=== PATIENT | male | born 1955 | race Caucasian/White ===

== ENCOUNTER 2017-05-27 11:11 | Inpatient (IN) | payer OTHER ==
[~2017-05-27] VITALS: Ht 182.9 cm; Wt 85.6 kg
--- NOTE | 2017-05-27 11:33 | EMERGENCY ROOM VISIT NOTE ---
History Report prepared by Felicia: Brandi Mclaughlin Under the Supervision of: Huma VegaO. First contact with patient: 11:23 Chief Complaint: TACHYCARDIA Stated Complaint: RACING HEARTBEAT History of Present Illness The patient is a 61 year old male who presents to the Emergency Room with complaints of tachycardia beginning this morning. The patient states that he had this episode once before about two months ago, but that he has had no issues since. He states that he was placed on a beta jon, but that he is no longer taking it. He states that he was diagnosed with atrial fibrillation. The patient states that he felt normal yesterday, but ate a lot and had alcohol. He reports being short of breath going up stairs today, but that he felt normal afterwards. He also reports feeling light-headed, but denies being nauseous and denies urinary/GI symptoms otherwise. The patient reports that his father had angina and his mother has a leaky valve. He also reports that his sister has thyroid issues. The patient denies a history of a stroke, hyperlipidemia, hypertension, and diabetes. Source of History: patient Onset: this morning Position: other (global) Quality: other Associated Symptoms: + SOB, + weakness (light-headedness), No nausea, No urinary symptoms Review of Systems See HPI for pertinent positives & negatives. A total of 10 systems reviewed and were otherwise negative. Past Medical & Surgical Medical Problems: (1) Atrial fibrillation Family History Angina Social History Smoking Status: Never Smoker Alcohol Use: occasionally Current/Historical Medications No Active Prescriptions or Reported Meds Allergies Coded Allergies: No Known Allergies (Unverified , 05/27/17) Physical Exam Vital Signs Date Time Temp Pulse Resp B/P (MAP) Pulse Ox O2 Delivery O2 Flow Rate FiO2 05/27/17 15:41 105 17 95 05/27/17 15:31 133/80 05/27/17 15:20 96 Room Air 05/27/17 15:16 125/89 05/27/17 15:11 112 31 97 05/27/17 15:10 103 18 114/79 96 Room Air 05/27/17 15:01 114/79 05/27/17 14:46 110/77 05/27/17 14:41 101 21 98 05/27/17 14:34 115 18 129/74 98 Room Air 05/27/17 14:32 129/74 05/27/17 14:16 133/81 05/27/17 14:11 159 21 97 05/27/17 14:04 125 18 113/90 97 Room Air 05/27/17 14:01 113/90 05/27/17 14:00 118/75 05/27/17 13:41 99/77 05/27/17 13:36 111 18 96/77 94 Room Air 05/27/17 13:31 99/77 05/27/17 13:17 119/59 05/27/17 13:11 96 17 95 05/27/17 13:01 115/81 05/27/17 12:46 114/99 05/27/17 12:41 119 15 95 05/27/17 12:34 123 18 124/76 95 Room Air 05/27/17 12:31 124/76 05/27/17 12:16 102/83 05/27/17 12:11 113 27 97 05/27/17 12:10 126/77 05/27/17 12:09 118 18 102/83 97 Room Air 05/27/17 11:56 125/61 05/27/17 11:55 156 18 125/61 96 Room Air 05/27/17 11:48 155 18 119/87 97 Room Air 05/27/17 11:46 119/87 05/27/17 11:41 134 32 97 05/27/17 11:34 160 18 95/88 97 Room Air 05/27/17 11:32 95/88 05/27/17 11:22 144/118 05/27/17 11:22 157 05/27/17 11:20 124/100 05/27/17 11:19 36.5 158 20 124/100 98 Room Air Physical Exam GENERAL: alert, well appearing, well nourished, no distress, non-toxic EYE EXAM: normal conjunctiva, PERRL and EOM's grossly intact OROPHARYNX: no exudate, no erythema, lips, buccal mucosa, and tongue normal and mucous membranes are dry NECK: supple, no nuchal rigidity, no adenopathy, non-tender LUNGS: Clear to auscultation. Normal chest wall mechanics, no w/r/r HEART: Tachycardic, irregular rhythm. no murmurs, S1 normal and S2 normal ABDOMEN: abdomen soft, non-tender, normo-active bowel sounds, no masses, no rebound or guarding. BACK: Back is symmetrical on inspection and there is no deformity, no midline tenderness, no CVA tenderness. SKIN: no rashes and no bruising UPPER EXTREMITIES: upper extremities are grossly normal. LOWER EXTREMITIES: No pitting edema. NEURO EXAM: Normal sensorium, cranial nerves II-XII [grossly] intact, normal speech, no [gross] weakness of arms, no [gross] weakness of legs. Medical Decision & Procedures ER Provider Diagnostic Interpretation: Radiology results have been interpreted by the radiologist and reviewed by me. CHEST ONE VIEW PORTABLE HISTORY: 61 years-old Male palpitations acute cardiac palpitations COMPARISON: None available TECHNIQUE: Portable upright AP view of the chest FINDINGS: Cardiomediastinal and hilar silhouettes are within normal limits. No pneumothorax, pleural effusion, focal airspace consolidation or overt pulmonary edema. Bones of the chest are grossly intact. IMPRESSION: No acute cardiopulmonary process. The above report was generated using voice recognition software. It may contain grammatical, syntax or spelling errors. Electronically signed by: Madhav Gee M.D. 05/27/2017 12:03 PM Dictated Date/Time: 05/27/2017 12:02 PM (CHEST FOR PE) ANGIO WITH CT DOSE: 462.63 mGy.cm HISTORY: 61 years-old Male tachycardia with shortness of breath on exertion. Recent travel history. TECHNIQUE: Multiple CTA images of the chest were obtained after the intravenous administration of 93 mL Optiray 320. Coronal and sagittal MIPS were obtained from the axial data set and were submitted for review. A dose lowering technique was utilized adhering to the principles of ALARA. COMPARISON: Chest radiograph of same day. FINDINGS: CTA: Heart is upper limits of normal in size. The thoracic aorta is not well opacified secondary to a large portion of the contrast bolus still within the SVC. No aortic aneurysm or dissection is identified. Imaged proximal great vessels appear patent. There is satisfactory opacification of the pulmonary arterial tree to the level of the subsegmental branches and demonstrates no focal filling defect to suggest pulmonary thromboembolic disease. CT CHEST: No dominant thyroid nodule identified. No pathologic adenopathy of the chest is seen. No pneumothorax or pleural effusion. There is no focal airspace consolidation or overt pulmonary edema. Minimal groundglass opacities of the lung bases suggest atelectasis. Central airways are patent. There is mild bronchial wall thickening of the lung bases suggesting bronchitis. No significant air trapping identified. There are ill-defined scattered areas of low attenuation involving the right and left hepatic lobes measuring up to approximately 1.5 cm. The remaining imaged upper abdominal structures are within normal limits. Soft tissues are unremarkable. The bones appear intact. No suspicious lytic or blastic bony lesions IMPRESSION: 1. No acute aortic pathology or evidence of pulmonary thromboembolic disease. 2. Bronchial wall thickening of the bilateral lungs suggests bronchitis. 3. Scattered areas of ill-defined low-attenuation throughout the right and left hepatic lobes are suspicious for nonspecific lesions. This finding could be further correlated with contrast-enhanced CT or MRI. No comparison study is available. The above report was generated using voice recognition software. It may contain grammatical, syntax or spelling errors. Electronically signed by: Madhav Gee M.D. 05/27/2017 2:18 PM Dictated Date/Time: 05/27/2017 2:04 PM Laboratory Results 05/27/17 11:24 Red Blood Count 5.42, Mean Corpuscular Volume 93.0, Mean Corpuscular Hemoglobin 32.1, Mean Corpuscular Hemoglobin Concent 34.5, Mean Platelet Volume 11.1, Neutrophils (%) (Auto) 72.5, Lymphocytes (%) (Auto) 18.0, Monocytes (%) (Auto) 7.6, Eosinophils (%) (Auto) 1.3, Basophils (%) (Auto) 0.2, Neutrophils # (Auto) 6.85, Lymphocytes # (Auto) 1.70, Monocytes # (Auto) 0.72, Eosinophils # (Auto) 0.12, Basophils # (Auto) 0.02 05/27/17 11:24 Test 05/27/17 11:24 White Blood Count 9.45 K/uL (4.8-10.8) Red Blood Count 5.42 M/uL (4.7-6.1) Hemoglobin 17.4 g/dL (14.0-18.0) Hematocrit 50.4 % (42-52) Mean Corpuscular Volume 93.0 fL (80-100) Mean Corpuscular Hemoglobin 32.1 pg (25-34) Mean Corpuscular Hemoglobin Concent 34.5 g/dl (32-36) Platelet Count 233 K/uL (130-400) Mean Platelet Volume 11.1 fL (7.4-10.4) Neutrophils (%) (Auto) 72.5 % Lymphocytes (%) (Auto) 18.0 % Monocytes (%) (Auto) 7.6 % Eosinophils (%) (Auto) 1.3 % Basophils (%) (Auto) 0.2 % Neutrophils # (Auto) 6.85 K/uL (1.4-6.5) Lymphocytes # (Auto) 1.70 K/uL (1.2-3.4) Monocytes # (Auto) 0.72 K/uL (0.11-0.59) Eosinophils # (Auto) 0.12 K/uL (0-0.5) Basophils # (Auto) 0.02 K/uL (0-0.2) RDW Standard Deviation 44.7 fL (36.4-46.3) RDW Coefficient of Variation 13.1 % (11.5-14.5) Immature Granulocyte % (Auto) 0.4 % Immature Granulocyte # (Auto) 0.04 K/uL (0.00-0.02) D-Dimer 590 ug/L FEU (0-500) Anion Gap 7.0 mmol/L (3-11) Est Creatinine Clear Calc Drug Dose 85.2 ml/min Estimated GFR () 93.7 Estimated GFR (Non- 80.9 BUN/Creatinine Ratio 17.8 (10-20) Calcium Level 9.0 mg/dl (8.5-10.1) Phosphorus Level 1.8 mg/dl (2.5-4.9) Magnesium Level 2.2 mg/dl (1.8-2.4) Total Bilirubin 0.7 mg/dl (0.2-1) Aspartate Amino Transf (AST/SGOT) 25 U/L (15-37) Alanine Aminotransferase (ALT/SGPT) 37 U/L (12-78) Alkaline Phosphatase 61 U/L (45-117) Troponin I < 0.015 ng/ml (0-0.045) Pro-B-Type Natriuretic Peptide 228 pg/ml (0-900) Total Protein 7.5 gm/dl (6.4-8.2) Albumin 4.0 gm/dl (3.4-5.0) Globulin 3.5 gm/dl (2.5-4.0) Albumin/Globulin Ratio 1.1 (0.9-2) Thyroid Stimulating Hormone (TSH) 1.590 uIu/ml (0.300-4.500) Laboratory results per my review. Medications Administered Medications (Trade) Dose Ordered Sig/Alia Route Start Time Stop Time Status Last Admin Dose Admin Sodium Chloride 1,000 ml @ 999 mls/hr Q1H1M STAT IV 05/27/17 11:39 05/27/17 12:39 DC 05/27/17 11:57 999 MLS/HR Sodium Chloride 1,000 ml @ 250 mls/hr Q4H STAT IV 05/27/17 11:41 05/27/17 15:40 DC 05/27/17 12:24 250 MLS/HR Diltiazem HCl (Cardizem Inj) 15 mg TODAY@1200 IV 05/27/17 12:00 05/27/17 12:02 DC 05/27/17 11:59 15 MG Diltiazem HCl 125 mg/Dextrose 125 ml @ 0 mls/hr Q0M PRN IV 05/27/17 12:00 06/26/17 11:59 05/27/17 12:24 5 MLS/HR Enoxaparin Sodium (Lovenox Inj) 90 mg NOW ONCE SQ 05/27/17 14:30 05/27/17 14:31 DC 05/27/17 15:40 90 MG Sodium Chloride 1,000 ml @ 80 mls/hr [id number] IV 05/27/17 15:16 06/26/17 15:15 05/27/17 18:10 80 MLS/HR ECG Indication: tachycardia Rate (beats per minute): 150 Rhythm: atrial fibrillation (rapid) Findings: no acute ischemic change, other (normal axis, normal QRS and QTC) ED Course 1125: The patient was evaluated in room B11B. A complete history and physical exam was performed. 1139: Ordered Sodium Chloride 1,000 ml @ 999 mls/hr IV. 1141: Ordered Sodium Chloride 1,000 ml @ 250 mls/hr IV. 1142: Ordered Diltiazem HCl 1 ea IV. 1200: Ordered Diltiazem HCl 125 mg/Dextrose 125 ml @ 0 mls/hr Protocol IV, Diltiazem HCl 15 mg IV. 1215: The patient reports feeling better. He received a bolus, and his heart rate is down to 100. 1410: Ordered Lovenox 1 Mg/Kg 1 ea. 1430: Ordered Lovenox Inj 90 mg SQ. 1509: Upon reevaluation, the patient is resting. I discussed the findings and the treatment plan with the patient. He expresses agreement and understanding. I spoke with Dr. Cantrell of the [facility] Hospitalist Service. He will be evaluated for further management. Medical Decision Differential diagnosis: Etiologies such as premature contractions, electrolyte abnormality, cardiac dysrhythmia, thyroid dysfunction, pulmonary embolism, infection, gastrointestinal, as well as others were entertained. Pt with a.fib with RVR, clinically dehydrated but responded to IVF. Questionable prior episode of a.fib. Possibly related to use of etoh, no apparent thyroid dysfunction or occult infectious etiology. Pt needs echo as he never had one from the first episode yet 2 months ago. Pt with low CHADS- VASC2 score. Given one dose of lovenox in the ER. Additional anticoagulation deferred to medicine team and cardiology. Pt improved here with rate control on cardizem drip. [place] improved in symptoms. Doubt vascular abnormality. Medication Reconcilliation Current Medication List: was personally reviewed by me Blood Pressure Screening Patient's blood pressure: Normal blood pressure Consults Time Called: [phone] Consulting Physician: Dr. Cantrell- [facility] Returned Call: [phone] I reviewed the patient's case with Dr. Catnrell. He will evaluate the patient for further management. Impression Primary Impression: Atrial fibrillation with rapid ventricular response Additional Impression: Palpitations Critical Care I have personally spent 45 minutes of critical care time in the direct management of this patient. This includes bedside care, interpretation of diagnostic studies, and testing, discussion with consultants, patient, and family members, and other required patient management activities. This 45 minutes is in excess of all separately billable procedures. Scribe Attestation The scribe's documentation has been prepared under my direction and personally reviewed by me in its entirety. I confirm that the note above accurately reflects all work, treatment, procedures, and medical decision making performed by me. Departure Information Dispostion Being Evaluated By Hospitalist Prescriptions No Active Prescriptions or Reported Meds Referrals No Doctor, Assigned (PCP) Patient Instructions [facility] Health Problem Qualifiers
[2017-05-27] MEDS ORDERED: SODIUM CHLORIDE 0.9% 1000ML 1,000 ML IV STA ×2 (11:39→11:41)
[2017-05-27] MEDS ORDERED: DILTIAZEM BOLUS / DRIP IV STA (11:42)
[2017-05-27] MEDS ORDERED: DILTIAZEM HCL 5 MG/ML 5 ML VIAL ONE (11:50)
[2017-05-27] MEDS ORDERED: DILTIAZEM HCL 5 MG/ML 5 ML VIAL IV SCH (12:00)
--- NOTE | 2017-05-27 12:04 | DIAGNOSTIC IMAGING REPORT ---
CHEST ONE VIEW PORTABLE HISTORY: 61 years-old Male palpitations acute cardiac palpitations COMPARISON: None available TECHNIQUE: Portable upright AP view of the chest FINDINGS: Cardiomediastinal and hilar silhouettes are within normal limits. No pneumothorax, pleural effusion, focal airspace consolidation or overt pulmonary edema. Bones of the chest are grossly intact. IMPRESSION: No acute cardiopulmonary process. The above report was generated using voice recognition software. It may contain grammatical, syntax or spelling errors. Electronically signed by: Madhav Gee M.D. 05/27/2017 12:03 PM Dictated Date/Time: 05/27/2017 12:02 PM
[2017-05-27] MEDS: DILTIAZEM HCL INJ 125 MG in DEXTROSE 5% 100ML IV PRN (12:24)
[2017-05-27 12:25] LABS: BASO % 0.2 %; BASO ABS # 0.02 K/uL (0-0.2); COMPLETE YES; EOS % 1.3 %; HEMATOCRIT 50.4 % (42-52); IG% 0.4 %; MEAN CORPUSCULAR HEMOGLOBIN 32.1 pg (25-34); MEAN CORPUSCULAR HGB CONC 34.5 g/dl (32-36); MEAN PLATELET VOLUME 11.1 fL (7.4-10.4); MONO % 7.6 %; NEUT % 72.5 %; PLATELET COUNT 233 K/uL (130-400); RED BLOOD COUNT 5.42 M/uL (4.7-6.1); WHITE BLOOD COUNT 9.45 K/uL (4.8-10.8)
[2017-05-27 12:34] LABS: ALT/SGPT 37 U/L (12-78); AST/SGOT 25 U/L (15-37); BLOOD UREA NITROGEN 18 mg/dl (7-18); BUN/CREATININE RATIO 17.8 (10-20); CARBON DIOXIDE 29 mmol/L (21-32); CHLORIDE 104 mmol/L (98-107); GLUCOSE 141 mg/dl (70-99); MAGNESIUM 2.2 mg/dl (1.8-2.4); POTASSIUM 3.9 mmol/L (3.5-5.1); SODIUM 140 mmol/L (136-145)
[2017-05-27 12:44] LABS: ALB/GLOB RATIO 1.1 (0.9-2); ALKALINE PHOSPHATASE 61 U/L (45-117)
[2017-05-27] MEDS ORDERED: ENOXAPARIN 1 MG/KG SQ STA (14:10)
[2017-05-27] MEDS ORDERED: OPTIRAY 320 IV PRN (14:15)
--- NOTE | 2017-05-27 14:19 | DIAGNOSTIC IMAGING REPORT ---
(CHEST FOR PE) ANGIO WITH CT DOSE: 462.63 mGy.cm HISTORY: 61 years-old Male tachycardia with shortness of breath on exertion. Recent travel history. TECHNIQUE: Multiple CTA images of the chest were obtained after the intravenous administration of 93 mL Optiray 320. Coronal and sagittal MIPS were obtained from the axial data set and were submitted for review. A dose lowering technique was utilized adhering to the principles of ALARA. COMPARISON: Chest radiograph of same day. FINDINGS: CTA: Heart is upper limits of normal in size. The thoracic aorta is not well opacified secondary to a large portion of the contrast bolus still within the SVC. No aortic aneurysm or dissection is identified. Imaged proximal great vessels appear patent. There is satisfactory opacification of the pulmonary arterial tree to the level of the subsegmental branches and demonstrates no focal filling defect to suggest pulmonary thromboembolic disease. CT CHEST: No dominant thyroid nodule identified. No pathologic adenopathy of the chest is seen. No pneumothorax or pleural effusion. There is no focal airspace consolidation or overt pulmonary edema. Minimal groundglass opacities of the lung bases suggest atelectasis. Central airways are patent. There is mild bronchial wall thickening of the lung bases suggesting bronchitis. No significant air trapping identified. There are ill-defined scattered areas of low attenuation involving the right and left hepatic lobes measuring up to approximately 1.5 cm. The remaining imaged upper abdominal structures are within normal limits. Soft tissues are unremarkable. The bones appear intact. No suspicious lytic or blastic bony lesions IMPRESSION: 1. No acute aortic pathology or evidence of pulmonary thromboembolic disease. 2. Bronchial wall thickening of the bilateral lungs suggests bronchitis. 3. Scattered areas of ill-defined low-attenuation throughout the right and left hepatic lobes are suspicious for nonspecific lesions. This finding could be further correlated with contrast-enhanced CT or MRI. No comparison study is available. The above report was generated using voice recognition software. It may contain grammatical, syntax or spelling errors. Electronically signed by: Madhav Gee M.D. 05/27/2017 2:18 PM Dictated Date/Time: 05/27/2017 2:04 PM
[2017-05-27] MEDS ORDERED: ENOXAPARIN 100 MG/1ML SYR SQ ONE (14:30)
[2017-05-27 15:20] VITALS: O2SAT 96; Ht 182.9 cm; Wt 85.6 kg
[2017-05-27] MEDS ORDERED: ACETAMINOPHEN 325 MG TAB PO PRN (15:30)
--- NOTE | 2017-05-27 15:53 | History and Physical ---
History & Physical Date & Time of Service: May 27, 2017 at 15:45 Chief Complaint: Racing Heartbeat Primary Care Physician: No Doctor, Assigned History of Present Illness Source: patient This is a 61 year old male with a past medical history of atrial fibrillation presents with palpitations - he states that two months ago in the [place], he was diagnosed with [facility] Fibrillation. At that time, they did some tests and put in on a b-jon. His heart rhythm converted to sinus rhythm and he was told to use the b-jon for two more weeks and then stop, which he did. Since then he had been on no medications. Earlier this morning, he developed palpitations - similar to this previous episode of A. Fib. Presented here and found to have A. Fib with RVR again. Started on Cardizem drip and HRs started improving. States he had dyspnea with exertion and palpitations, but no other symptoms at this time. Past Medical/Surgical History Medical Problems: (1) Atrial fibrillation Status: Chronic Family History Angina Social History Smoking Status: Never Smoker Allergies Coded Allergies: No Known Allergies (Unverified , 05/27/17) Home Medications No Active Prescriptions or Reported Meds Review of Systems Constitutional: No fever, No chills, No weakness Respiratory: + dyspnea on exertion, No cough, No sputum, No wheezing, No shortness of breath, No dyspnea at rest, No hemoptysis Cardiovascular: + palpitations, No chest pain, No orthopnea, No edema Abdomen: No pain, No nausea, No vomiting, No diarrhea Musculoskeletal: No joint pain Genitourinary - Male: No hematuria, No dysuria, No urinary frequency, No urinary urgency Neurologic: No weakness, No numbness/tingling, No vertigo, No balance problems Psychiatric: No depression symptoms, No anxiety Endocrine: No fatigue, No excessive thirst, No excessive urination Hematologic / Lymphatic: No abnormal bleeding/bruising, No swollen lymph nodes Integumentary: No rash, No itch Allergic / Immunologic: No environmental allergies, No seasonal allergies Physical Exam Vital Signs Date Time Temp Pulse Resp B/P (MAP) Pulse Ox O2 Delivery O2 Flow Rate FiO2 05/27/17 15:10 103 18 114/79 96 Room Air 05/27/17 14:34 115 18 129/74 98 Room Air 05/27/17 14:04 125 18 113/90 97 Room Air 05/27/17 13:36 111 18 96/77 94 Room Air 05/27/17 12:34 123 18 124/76 95 Room Air 05/27/17 12:09 118 18 102/83 97 Room Air 05/27/17 11:55 156 18 125/61 96 Room Air 05/27/17 11:48 155 18 119/87 97 Room Air 05/27/17 11:34 160 18 95/88 97 Room Air 05/27/17 11:22 157 05/27/17 11:19 36.5 158 20 124/100 98 Room Air General Appearance: no apparent distress Head: normocephalic, atraumatic Eyes: normal inspection ENT: hearing grossly normal Neck: supple Respiratory/Chest: chest non-tender, lungs clear, normal breath sounds, no respiratory distress, no accessory muscle use Cardiovascular: no edema, no JVD, no murmur, normal peripheral pulses, + tachycardia, + irregularly irregular Abdomen/GI: normal bowel sounds, non tender, soft Back: normal inspection Extremities/Musculoskelatal: normal inspection, no calf tenderness, normal capillary refill, no pedal edema, normal range of motion Neurologic/Psych: department specialist II-XII nml as tested, no motor/sensory deficits, alert, normal mood/affect, oriented x 3 Skin: normal color Lymphatic: no adenopathy Diagnostics Laboratory Results Results Past 24 Hours Test 05/27/17 11:24 05/27/17 15:16 Range/Units White Blood Count 9.45 4.8-10.8 K/uL Red Blood Count 5.42 4.7-6.1 M/uL Hemoglobin 17.4 14.0-18.0 g/dL Hematocrit 50.4 42-52 % Mean Corpuscular Volume 93.0 80-100 fL Mean Corpuscular Hemoglobin 32.1 25-34 pg Mean Corpuscular Hemoglobin Concent 34.5 32-36 g/dl Platelet Count 233 130-400 K/uL Mean Platelet Volume 11.1 7.4-10.4 fL Neutrophils (%) (Auto) 72.5 % Lymphocytes (%) (Auto) 18.0 % Monocytes (%) (Auto) 7.6 % Eosinophils (%) (Auto) 1.3 % Basophils (%) (Auto) 0.2 % Neutrophils # (Auto) 6.85 1.4-6.5 K/uL Lymphocytes # (Auto) 1.70 1.2-3.4 K/uL Monocytes # (Auto) 0.72 0.11-0.59 K/uL Eosinophils # (Auto) 0.12 0-0.5 K/uL Basophils # (Auto) 0.02 0-0.2 K/uL RDW Standard Deviation 44.7 36.4-46.3 fL RDW Coefficient of Variation 13.1 11.5-14.5 % Immature Granulocyte % (Auto) 0.4 % Immature Granulocyte # (Auto) 0.04 0.00-0.02 K/uL D-Dimer 590 0-500 ug/L FEU Sodium Level 140 136-145 mmol/L Potassium Level 3.9 3.5-5.1 mmol/L Chloride Level 104 98-107 mmol/L Carbon Dioxide Level 29 21-32 mmol/L Anion Gap 7.0 3-11 mmol/L Blood Urea Nitrogen 18 7-18 mg/dl Creatinine 1.00 0.60-1.40 mg/dl Est Creatinine Clear Calc Drug Dose 85.2 ml/min Estimated GFR () 93.7 Estimated GFR (Non- 80.9 BUN/Creatinine Ratio 17.8 10-20 Random Glucose 141 70-99 mg/dl Calcium Level 9.0 8.5-10.1 mg/dl Magnesium Level 2.2 1.8-2.4 mg/dl Total Bilirubin 0.7 0.2-1 mg/dl Aspartate Amino Transf (AST/SGOT) 25 15-37 U/L Alanine Aminotransferase (ALT/SGPT) 37 12-78 U/L Alkaline Phosphatase 61 45-117 U/L Troponin I < 0.015 0-0.045 ng/ml Pro-B-Type Natriuretic Peptide 228 0-900 pg/ml Total Protein 7.5 6.4-8.2 gm/dl Albumin 4.0 3.4-5.0 gm/dl Globulin 3.5 2.5-4.0 gm/dl Albumin/Globulin Ratio 1.1 0.9-2 Thyroid Stimulating Hormone (TSH) 1.590 0.300-4.500 uIu/ml Diagnostic Radiology (CHEST FOR PE) ANGIO WITH CT DOSE: 462.63 mGy.cm HISTORY: 61 years-old Male tachycardia with shortness of breath on exertion. Recent travel history. TECHNIQUE: Multiple CTA images of the chest were obtained after the intravenous administration of 93 mL Optiray 320. Coronal and sagittal MIPS were obtained from the axial data set and were submitted for review. A dose lowering technique was utilized adhering to the principles of ALARA. COMPARISON: Chest radiograph of same day. FINDINGS: CTA: Heart is upper limits of normal in size. The thoracic aorta is not well opacified secondary to a large portion of the contrast bolus still within the SVC. No aortic aneurysm or dissection is identified. Imaged proximal great vessels appear patent. There is satisfactory opacification of the pulmonary arterial tree to the level of the subsegmental branches and demonstrates no focal filling defect to suggest pulmonary thromboembolic disease. CT CHEST: No dominant thyroid nodule identified. No pathologic adenopathy of the chest is seen. No pneumothorax or pleural effusion. There is no focal airspace consolidation or overt pulmonary edema. Minimal groundglass opacities of the lung bases suggest atelectasis. Central airways are patent. There is mild bronchial wall thickening of the lung bases suggesting bronchitis. No significant air trapping identified. There are ill-defined scattered areas of low attenuation involving the right and left hepatic lobes measuring up to approximately 1.5 cm. The remaining imaged upper abdominal structures are within normal limits. Soft tissues are unremarkable. The bones appear intact. No suspicious lytic or blastic bony lesions IMPRESSION: 1. No acute aortic pathology or evidence of pulmonary thromboembolic disease. 2. Bronchial wall thickening of the bilateral lungs suggests bronchitis. 3. Scattered areas of ill-defined low-attenuation throughout the right and left hepatic lobes are suspicious for nonspecific lesions. This finding could be further correlated with contrast-enhanced CT or MRI. No comparison study is available. CHEST ONE VIEW PORTABLE HISTORY: 61 years-old Male palpitations acute cardiac palpitations COMPARISON: None available TECHNIQUE: Portable upright AP view of the chest FINDINGS: Cardiomediastinal and hilar silhouettes are within normal limits. No pneumothorax, pleural effusion, focal airspace consolidation or overt pulmonary edema. Bones of the chest are grossly intact. IMPRESSION: No acute cardiopulmonary process. EKG Atrial fibrillation with rapid ventricular response Impression Assessment and Plan This is a 61 year old male with a past medical history of atrial fibrillation presents with palpitations found to have A. Fib with RVR A. Fib with RVR second episode, as he had this two months prior started on Cardizem drip will start Lopressor 25mg BID and try to taper down the Cardizem was given Lovenox in the ED; which we can continue while he is in A. Fib with RVR check an echo monitor in tele cardiology consult for further input CHADS2 = 0 (pending echo) DVT ppx Lovenox 1mg/kg q12 FULL CODE VTE Prophylaxis VTE Risk Assessment Done? Y/N: Yes Risk Level: Moderate Given or contraindicated: Other Anticoagulation
[2017-05-27] MEDS ORDERED: DILTIAZEM BOLUS / DRIP IV SCH (16:39)
[2017-05-27 17:05] VITALS: BP 101/79; PULSE 100; TEMP 36.7; O2SAT 100
[2017-05-27] MEDS: SODIUM CHLORIDE 0.9% 1000ML 1,000 ML IV SCH ×2 (18:10→20:54)
[2017-05-27 19:31] VITALS: BP 109/85; PULSE 89; TEMP 36.4; O2SAT 99
[2017-05-27] MEDS: METOPROLOL TARTRATE 25 MG TAB PO SCH (20:56)
[2017-05-27] MEDS ORDERED: ENOXAPARIN 1 MG/KG SQ SCH (21:00)
[2017-05-27] MEDS: ENOXAPARIN 100 MG/1ML SYR SQ SCH (23:13)
[2017-05-28] VITALS (8 sets, daily range): BP systolic 92–121; BP diastolic 61–91; PULSE 71–97; TEMP 36.6–37; O2SAT 94–97
[2017-05-28] MEDS: DILTIAZEM HCL INJ 125 MG in DEXTROSE 5% 100ML IV PRN (01:02)
[2017-05-28 05:59] LABS: HEMATOCRIT 46.2 % (42-52); MEAN CELL VOLUME 94.5 fL (80-100); MEAN CORPUSCULAR HEMOGLOBIN 30.3 pg (25-34); MEAN PLATELET VOLUME 10.4 fL (7.4-10.4); PLATELET COUNT 199 K/uL (130-400); RED BLOOD COUNT 4.89 M/uL (4.7-6.1)
[2017-05-28 06:11] LABS: PARTIAL THROMBOPLASTIN RATIO 1.4; PROTHROMBIN TIME (PATIENT) 10.7 SECONDS (9.0-12.0)
[2017-05-28 06:35] LABS: BUN/CREATININE RATIO 14.6 (10-20); CALCIUM 8.3 mg/dl (8.5-10.1); CREATININE 0.85 mg/dl (0.60-1.40); POTASSIUM 3.9 mmol/L (3.5-5.1)
[2017-05-28] MEDS: METOPROLOL TARTRATE 25 MG TAB PO SCH (08:47)
[2017-05-28] MEDS: ENOXAPARIN 100 MG/1ML SYR SQ SCH (08:47)
--- NOTE | 2017-05-28 10:26 | ECHOCARDIOGRAM REPORT ---
*NOTICE TO RECEIVING REPUBLICAN AGENCY This information is strictly Confidential and protected under [place] law. [place] law prohibits you from making any further disclosure of this information unless further disclosure is expressly permitted by the written consent of the person to whom it pertains or is authorized by law. A general authorization for the release of medical or other information is not sufficient for this purpose. Hospital accepts no responsibility if the information is made available to any other person, INCLUDING THE PATIENT. Interpretation Summary * Name: JOEL LINDSAY Study Date: 05/28/2017 08:05 AM BP: 98/65 mmHg * Patient Location: [id number].2E\S\E206\S\1 HR: 80 * : 1955 (M/d/yyyy) Gender: Male Height: 72 in * Age: 61 yrs Ethnicity: CA Weight: 188 lb * Ordering Physician: Rich Elizondo * Referring Physician: Self, Referred * Performed By: Michael Quinonez RCS * * Reason For Study: A-FIB * BSA: 2.1 m2 * -- Conclusions -- * Normal LV chamber size and wall thickness. * Normal LV systolic function, EF 60-65%. * No segmental left ventricular wall motion abnormalities are noted. * Aortic valve sclerosis mild, without significant aortic valvular stenosis. Trace regurgitation. * Mild left atrial enlargement. Procedure Details * A complete two-dimensional transthoracic echocardiogram was performed (2D, M-mode, Doppler and color flow Doppler). Left Ventricle * The left ventricle is normal in size. * There is normal left ventricular wall thickness. * Left ventricular systolic function is normal. * No segmental left ventricular wall motion abnormalities are noted. * Ejection Fraction = 60-65%. * The left ventricular wall motion is normal. Right Ventricle * The right ventricular cavity size is normal (basal dimension <4.2 cm in right ventricular apical 4-chamber view). * The right ventricular systolic function is normal as assessed by tricuspid annular plane systolic excursion (TAPSE) (normal >1.5 cm). Atria * The left atrium is mildly dilated. * Right atrial size is normal. * No ASD detected; PFO is not assessed. Mitral Valve * The mitral valve is normal in structure and function. Tricuspid Valve * The tricuspid valve is normal in structure and function. Aortic Valve * The aortic valve is trileaflet. * Aortic valve sclerosis mild, without significant aortic valvular stenosis. * Trace aortic regurgitation. Pulmonic Valve * The pulmonary valve is not well seen, but the Doppler examination is normal without significant regurgitation or stenosis. Great Vessels * The aortic root and proximal ascending aorta are normal sized. Pericardium/Pleural * There is no pericardial effusion. MMode 2D Measurements and Calculations IVSd 0.94 cm IVSs 1.2 cm LVIDd 3.6 cm LVIDs 2.5 cm LVPWd 1.0 cm LVPWs 1.2 cm IVS/LVPW 0.91 FS 30.0 % EDV(Teich) 55.5 ml ESV(Teich) 23.3 ml EF(Teich) 58.1 % EDV(cubed) 47.8 ml ESV(cubed) 16.4 ml EF(cubed) 65.6 % % IVS thick 29.3 % % LVPW thick 11.3 % LV mass(C)d 107.6 grams LV mass(C)dI 51.9 grams/m\S\2 LV mass(C)s 85.6 grams LV mass(C)sI 41.3 grams/m\S\2 SV(Teich) 32.2 ml SI(Teich) 15.5 ml/m\S\2 SV(cubed) 31.4 ml SI(cubed) 15.1 ml/m\S\2 Ao root diam 3.7 cm Ao root area 10.9 cm\S\2 ACS 2.1 cm LA dimension 4.0 cm asc Aorta Diam 3.6 cm LA/Ao 1.1 Doppler Measurements and Calculations MV E max peter 109.6 cm/sec MV A max peter 26.1 cm/sec MV E/A 4.2 MV P1/2t max peter 137.2 cm/sec MV P1/2t 61.2 msec MVA(P1/2t) 3.6 cm\S\2 MV dec slope 657.0 cm/sec\S\2 MV dec time 0.17 sec Ao V2 max 133.2 cm/sec Ao max PG 7.1 mmHg Ao max PG (full) 3.6 mmHg LV V1 max PG 3.5 mmHg LV V1 max 93.8 cm/sec PA V2 max 85.2 cm/sec PA max PG 2.9 mmHg TR max peter 209.1 cm/sec
[2017-05-28] MEDS ORDERED: METOPROLOL SUCC 25MG EXT REL TAB PO ONE (10:30)
--- NOTE | 2017-05-28 13:06 | CARDIOLOGY CONSULTATION ---
DATE OF CONSULTATION: 05/28/2017 INPATIENT CONSULTATION CONSULTATION REQUESTED BY: Dr. Elizondo. REASON FOR CONSULTATION: Paroxysmal atrial fibrillation with rapid ventricular response. HISTORY OF PRESENT ILLNESS: Mr. Rodriguez is a very pleasant [facility] 61-year-old gentleman who presented to [facility] Emergency Department on 05/27/2017 with a complaint of palpitations. The patient is from [place] and was only in the [place] area visiting friends and attending a recent football game. Then on the morning of 05/27/2017 he woke up and felt his heart racing. He states that he just felt his heart racing in his chest and he denied any associated symptoms with it but did admit that if he tried to walk up the steps, he would get winded very easily but he denied any associated chest pain, lightheadedness, dizziness, or syncope. He states that the symptoms persisted throughout the morning and he was supposed to get on a flight to return home on the evening of the first, however, he became concerned and came into the Emergency Department. In the Emergency Department, he was found to be in atrial fibrillation with rapid ventricular response. He was started on beta blockers, Cardizem drip and subQ Lovenox for anticoagulation and admitted to telemetry. Currently, he is without complaint at rest and states that since he was given medicines to slow his heart rate down, he has not had anymore symptoms. Of note, the patient states that he had a similar episode approximately 2 months ago back home in [place]. He had a minor skin lesion removed at the hospital 1 day and later that night he started developing some palpitations. At that time he went to the hospital, he was found to be in atrial fibrillation. He was placed on a beta jon and given an oral anticoagulant. However, he does not remember the name and then was scheduled for ANTONIO cardioversion the next day; however, upon presentation at that time, he was found to be back in normal sinus rhythm. His anticoagulation was not continued and he was kept on a beta jon for 2 weeks and then it was discontinued. Since coming to [facility], he has not done anything significantly out of the ordinary. He has been busy with friends and having some alcohol but nothing significantly out of the normal for him. Otherwise, he has been feeling well. PAST SURGICAL HISTORY: Denies. MEDICAL ILLNESSES: Only the atrial fibrillation with a JIL score of 0. FAMILY HISTORY: He denies any premature coronary artery disease or sudden cardiac . His father did develop angina later in life and his mother has a leaky valve, but she is 95 and in good health. SOCIAL HISTORY: Denies any tobacco use. Drinks occasional alcohol. Denies any recreational drug use. He is and lives at home with his . 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 He travels to [place] regularly, both for business and leisure. REVIEW OF SYSTEMS: As per HPI, all other review of systems reviewed and negative at this time. ALLERGIES: No known drug allergies. MEDICATIONS: Denies. PHYSICAL EXAMINATION: VITALS: Temperature 37, pulse 83, respiratory rate 12, blood pressure 96/69. GENERAL: Awake, alert, oriented x3 in no acute distress. HEENT: Normocephalic, atraumatic. Pupils equal, round, and reactive to light and accommodation. Extraocular muscles intact. Anicteric sclerae. Moist mucous membranes. NECK: No JVD, no bruit. CARDIOVASCULAR: Irregularly irregular. No murmurs, rubs or gallops appreciated. PULMONARY: Clear to auscultation bilaterally. No rales, rhonchi, or wheezing. ABDOMEN: Bowel sounds x4, soft. No rebound, guarding, tenderness. No organomegaly. EXTREMITIES: No clubbing, cyanosis or edema. +2 pedal pulses bilaterally. SKIN: Warm and dry. TEST RESULTS: A 12-lead EKG upon presentation independently reviewed at this time, shows atrial fibrillation with rapid ventricular response at 150 beats per minute. LABORATORY STUDIES OF SIGNIFICANCE: TSH of 1.6. Sodium 140, potassium 3.9, BUN 18, creatinine of 1, magnesium of 2.2. A 2D echocardiogram preliminary reviewed. Full report to follow, shows normal LV chamber size with normal wall thickness, normal LV systolic function without regional wall motion abnormality, EF 60-65%, no significant valvular pathology, mild left atrial enlargement. IMPRESSION: 1. Paroxysmal atrial fibrillation with rapid ventricular response, symptomatic. 2. JIL score of 0. RECOMMENDATIONS: It was my pleasure to see Mr. Rodriguez in consultation today. The pathophysiology and treatment options for atrial fibrillation were discussed with the patient at great lengths. 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 We will then discharge him. Given that he is asymptomatic, he will travel home and follow up with his professor of public administration there. This is the plan that the patient also prefers. So he has already received metoprolol tartrate today, but I will give him an additional dose of metoprolol succinate 25 mg now and start him on that b.i.d. and again the oral anticoagulant will be chosen based on coverage and case management has been kind enough to contact his insurance. Once the medications have been straightened out, it will be okay to discharge the patient from the hospital from a cardiac standpoint.
[2017-05-28] MEDS ORDERED: SODIUM PHOSPHATE 3 MMOL/1 ML INFUSION IV STA (13:38)
[2017-05-28] MEDS ORDERED: SODIUM PHOSPHATE INJ 15 MMOL in SODIUM CHLORIDE 0.9% 250ML 250 ML IV SCH (14:00)
--- NOTE | 2017-05-28 14:40 | Progress Note ---
Subjective Date of Service: May 28, 2017. Subjective Pt evaluation today including: conversation w/ patient, physical exam, lab review, review of studies, review of inpatient medication list Saw/examined the patient in room 206 He's doing well, no problems/issues to note Denies palpitations/chest pain today Problem List Medical Problems: (1) Atrial fibrillation Status: Chronic Review of Systems Respiratory: No cough, No sputum, No shortness of breath, No dyspnea on exertion Cardiac: No chest pain, No palpitations Medications Current Inpatient Medications Medications (Trade) Dose Ordered Sig/Alia Route Start Time Stop Time Status Last Admin Dose Admin Diltiazem HCl 125 mg/Dextrose 125 ml @ 0 mls/hr Q0M PRN IV 05/27/17 12:00 06/26/17 11:59 05/28/17 01:02 5 MLS/HR Ioversol (Optiray 320) 100 ml UD PRN IV 05/27/17 14:15 05/31/17 14:14 Sodium Chloride 1,000 ml @ 80 mls/hr [id number] IV 05/27/17 15:16 06/26/17 15:15 05/27/17 20:54 80 MLS/HR Acetaminophen (Tylenol Tab) 650 mg Q4H PRN PO 05/27/17 15:30 06/26/17 15:29 Metoprolol Succinate (Toprol Xl Tab) 25 mg BID PO 05/28/17 21:00 06/27/17 20:59 Rivaroxaban (Xarelto Tab) 20 mg DAILY PO 05/29/17 09:00 06/28/17 08:59 UNV Sodium Phosphate 15 mmol/Sodium Chloride 255 ml @ 88 mls/hr TODAY@1400 IV 05/28/17 14:00 05/28/17 16:54 Objective Vital Signs Date Time Temp Pulse Resp B/P (MAP) Pulse Ox O2 Delivery O2 Flow Rate FiO2 05/28/17 12:05 Room Air 05/28/17 11:40 36.8 86 18 109/72 (84) 96 05/28/17 08:48 118/69 (85) 05/28/17 08:13 37.0 83 18 96/69 (78) 95 05/28/17 08:10 96 Room Air 05/28/17 04:15 36.6 80 17 98/65 (76) 96 Room Air 05/28/17 04:00 Room Air 05/28/17 00:04 36.8 71 17 92/61 (71) 94 Room Air 05/27/17 23:59 Room Air 05/27/17 20:00 Room Air 05/27/17 19:31 36.4 89 18 109/85 (93) 99 Room Air 05/27/17 17:05 36.7 100 18 101/79 (86) 100 Room Air 05/27/17 16:47 36.5 97 27 142/81 96 05/27/17 16:41 97 27 96 05/27/17 16:11 95 21 96 05/27/17 16:01 142/81 05/27/17 15:47 134/89 05/27/17 15:41 105 17 95 05/27/17 15:31 133/80 05/27/17 15:20 96 Room Air 05/27/17 15:16 125/89 05/27/17 15:11 112 31 97 05/27/17 15:10 103 18 114/79 96 Room Air 05/27/17 15:01 114/79 05/27/17 14:46 110/77 05/27/17 14:41 101 21 98 05/27/17 14:34 115 18 129/74 98 Room Air 05/27/17 14:32 129/74 Physical Exam General Appearance: no apparent distress Respiratory/Chest: lungs clear, normal breath sounds, no respiratory distress, no accessory muscle use Cardiovascular: no edema, no murmur, + irregularly irregular Abdomen: normal bowel sounds, non tender, soft Laboratory Results Last 24 Hours Test 05/28/17 05:36 White Blood Count 7.90 K/uL Red Blood Count 4.89 M/uL Hemoglobin 14.8 g/dL Hematocrit 46.2 % Mean Corpuscular Volume 94.5 fL Mean Corpuscular Hemoglobin 30.3 pg Mean Corpuscular Hemoglobin Concent 32.0 g/dl RDW Standard Deviation 46.1 fL RDW Coefficient of Variation 13.4 % Platelet Count 199 K/uL Mean Platelet Volume 10.4 fL Prothrombin Time 10.7 SECONDS Prothromb Time International Ratio 1.0 Activated Partial Thromboplast Time 35.1 SECONDS Partial Thromboplastin Ratio 1.4 Sodium Level 141 mmol/L Potassium Level 3.9 mmol/L Chloride Level 107 mmol/L Carbon Dioxide Level 28 mmol/L Anion Gap 6.0 mmol/L Blood Urea Nitrogen 12 mg/dl Creatinine 0.85 mg/dl Est Creatinine Clear Calc Drug Dose 100.2 ml/min Estimated GFR () 109.0 Estimated GFR (Non- 94.0 BUN/Creatinine Ratio 14.6 Random Glucose 97 mg/dl Calcium Level 8.3 mg/dl Magnesium Level 2.0 mg/dl Assessment and Plan This is a 61 year old male with a past medical history of atrial fibrillation presents with palpitations found to have A. Fib with RVR A. Fib with RVR 05/28 stop Lovenox, start Xarelto tonight, 20mg with dinner Toprol XL twice a day as per cardiology taper down Cardizem drip 05/27 second episode, as he had this two months prior started on Cardizem drip will start Lopressor 25mg BID and try to taper down the Cardizem was given Lovenox in the ED; which we can continue while he is in A. Fib with RVR check an echo monitor in tele cardiology consult for further input CHADS2 = 0 (pending echo) DVT ppx Xarelto FULL CODE
[2017-05-28] MEDS ORDERED: METOPROLOL TARTRATE 1 MG/ML VIAL ONE (16:49)
[2017-05-28] MEDS ORDERED: NURSING VERBAL MED ORDER ONE ×3 (17:00→23:15)
[2017-05-28] MEDS: METOPROLOL SUCC 50MG EXT REL TAB PO SCH (18:13)
[2017-05-28] MEDS: RIVAROXABAN 20 MG TAB PO SCH (20:38)
[2017-05-28] MEDS: SODIUM CHLORIDE 0.9% 1000ML 1,000 ML IV SCH (20:39)
[2017-05-28] MEDS ORDERED: METOPROLOL SUCC 25MG EXT REL TAB PO SCH (21:00)
[2017-05-28] MEDS ORDERED: DILTIAZEM HCL 120 MG CAPCR PO STA (23:08)
[2017-05-29 00:52] VITALS: BP 103/81; PULSE 111; TEMP 36.6; O2SAT 94
[2017-05-29 03:59] VITALS: BP 103/71; PULSE 76; TEMP 36.8; O2SAT 96
[2017-05-29 06:06] LABS: HEMATOCRIT 45.7 % (42-52); MEAN CELL VOLUME 94.2 fL (80-100); MEAN CORPUSCULAR HEMOGLOBIN 31.3 pg (25-34); MEAN CORPUSCULAR HGB CONC 33.3 g/dl (32-36); MEAN PLATELET VOLUME 10.5 fL (7.4-10.4); PLATELET COUNT 190 K/uL (130-400); RED BLOOD COUNT 4.85 M/uL (4.7-6.1); WHITE BLOOD COUNT 6.91 K/uL (4.8-10.8)
[2017-05-29 06:17] LABS: PARTIAL THROMBOPLASTIN RATIO 1.2; PROTHROMBIN TIME (PATIENT) 11.2 SECONDS (9.0-12.0)
[2017-05-29 06:43] LABS: BUN/CREATININE RATIO 15.8 (10-20); CALCIUM 8.5 mg/dl (8.5-10.1); CREATININE 0.89 mg/dl (0.60-1.40); POTASSIUM 3.9 mmol/L (3.5-5.1)
[2017-05-29 06:45] LABS: PHOSPHORUS 2.8 mg/dl (2.5-4.9)
[2017-05-29 07:33] VITALS: BP 110/65; PULSE 82; TEMP 36.6; O2SAT 96
[2017-05-29] MEDS: METOPROLOL SUCC 50MG EXT REL TAB PO SCH ×2 (08:57→19:47)
[2017-05-29] MEDS: SODIUM CHLORIDE 0.9% 1000ML 1,000 ML IV SCH ×2 (08:58→19:46)
--- NOTE | 2017-05-29 09:38 | Cardiology Follow-Up ---
Subjective Subjective Date of Service: May 29, 2017. Pt evaluation today including: conversation w/ patient, physical exam, chart review, lab review, review of studies, review of inpatient medication list Additional Details: Pt seen and examined, some palpitations with ambulation along with sob. Denies cp, lightheadedness or dizziness. Tele reviewed: atrial fibrillation with rvr rates into 150's with ambulation Problem List Medical Problems: (1) Atrial fibrillation Status: Chronic Review of Systems Respiratory: + dyspnea on exertion, No see HPI, No cough, No sputum, No wheezing, No shortness of breath, No dyspnea at rest, No hemoptysis, No problem reported Cardiac: + palpitations, No see HPI, No chest pain, No orthopnea, No PND, No edema, No claudication, No problem reported Objective Vital Signs Last Vital Signs Documentation Date Time Temp Pulse Resp B/P (MAP) Pulse Ox O2 Delivery O2 Flow Rate FiO2 05/29/17 08:00 Room Air 05/29/17 07:33 36.6 82 16 110/65 (80) 96 Physical Exam: General Appearance: WD/WN, no apparent distress Eyes: bilateral eyes normal inspection, bilateral eyes PERRL, bilateral eyes EOMI ENT: normal ENT inspection, hearing grossly normal, pharynx normal Neck: supple, no adenopathy, thyroid normal, no JVD, no carotid bruits, trachea midline Respiratory/Chest: chest non-tender, lungs clear, normal breath sounds, no respiratory distress, no accessory muscle use Cardiovascular: no edema, no murmur, + tachycardia, + irregularly irregular Abdomen: normal bowel sounds, non tender, soft, no organomegaly, no pulsatile mass Extremities: non-tender, normal inspection, no pedal edema, no calf tenderness 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 atrial fibrillation still with rvr initially believed would convert on his own with beta jon as he had already done previously added a dose of cardizem cd last pm with improved rates with rest may need to proceed with rhoda guided cardioversion will cont with beta blockade today but must also be concerned with bradycardia once converts npo after midnight luckily no flight plans back to [place] yet scheduled Xarelto started, tolerating well appreciate case managements help in making arrangements cont to monitor on tele
--- NOTE | 2017-05-29 10:00 | Progress Note ---
Subjective Date of Service: May 29, 2017. Subjective Pt evaluation today including: conversation w/ patient, physical exam, lab review, review of studies, review of inpatient medication list Saw/examined the patient in room 206 He's doing well; no symptoms, does not feel palpitations/chest pain/shortness of breath HRs remain elevated on tele overnight Problem List Medical Problems: (1) Atrial fibrillation Status: Chronic Review of Systems Constitutional: No fever, No chills Respiratory: No cough, No sputum, No wheezing, No shortness of breath, No dyspnea on exertion, No dyspnea at rest, No hemoptysis Cardiac: No chest pain, No palpitations Medications Current Inpatient Medications Medications (Trade) Dose Ordered Sig/Alia Route Start Time Stop Time Status Last Admin Dose Admin Diltiazem HCl 125 mg/Dextrose 125 ml @ 0 mls/hr Q0M PRN IV 05/27/17 12:00 06/26/17 11:59 05/28/17 01:02 5 MLS/HR Ioversol (Optiray 320) 100 ml UD PRN IV 05/27/17 14:15 05/31/17 14:14 Sodium Chloride 1,000 ml @ 80 mls/hr [id number] IV 05/27/17 15:16 06/26/17 15:15 05/29/17 08:58 80 MLS/HR Acetaminophen (Tylenol Tab) 650 mg Q4H PRN PO 05/27/17 15:30 06/26/17 15:29 Rivaroxaban (Xarelto Tab) 20 mg QDD PO 05/28/17 21:00 06/27/17 20:59 05/28/17 20:38 20 MG Metoprolol Succinate (Toprol Xl Tab) 50 mg BID PO 05/28/17 18:30 06/27/17 18:29 05/29/17 08:57 50 MG Objective Vital Signs Date Time Temp Pulse Resp B/P (MAP) Pulse Ox O2 Delivery O2 Flow Rate FiO2 05/29/17 08:00 Room Air 05/29/17 07:33 36.6 82 16 110/65 (80) 96 Room Air 05/29/17 04:00 Room Air 05/29/17 03:59 36.8 76 17 103/71 (82) 96 Room Air 05/29/17 00:52 36.6 111 18 103/81 (88) 94 Room Air 05/28/17 23:59 Room Air 05/28/17 20:00 Room Air 05/28/17 18:59 36.7 81 20 121/91 (101) 97 Room Air 05/28/17 16:52 141 05/28/17 16:10 Room Air 05/28/17 15:29 36.7 97 18 100/71 (81) 94 Room Air 05/28/17 12:05 Room Air 05/28/17 11:40 36.8 86 18 109/72 (84) 96 Physical Exam General Appearance: no apparent distress Respiratory/Chest: chest non-tender, lungs clear, normal breath sounds, no respiratory distress, no accessory muscle use Cardiovascular: + tachycardia, + irregularly irregular Extremities: non-tender, normal inspection, no pedal edema Laboratory Results Last 24 Hours Test 05/29/17 05:27 White Blood Count 6.91 K/uL Red Blood Count 4.85 M/uL Hemoglobin 15.2 g/dL Hematocrit 45.7 % Mean Corpuscular Volume 94.2 fL Mean Corpuscular Hemoglobin 31.3 pg Mean Corpuscular Hemoglobin Concent 33.3 g/dl RDW Standard Deviation 45.9 fL RDW Coefficient of Variation 13.4 % Platelet Count 190 K/uL Mean Platelet Volume 10.5 fL Prothrombin Time 11.2 SECONDS Prothromb Time International Ratio 1.0 Activated Partial Thromboplast Time 31.0 SECONDS Partial Thromboplastin Ratio 1.2 Sodium Level 141 mmol/L Potassium Level 3.9 mmol/L Chloride Level 107 mmol/L Carbon Dioxide Level 27 mmol/L Anion Gap 7.0 mmol/L Blood Urea Nitrogen 14 mg/dl Creatinine 0.89 mg/dl Est Creatinine Clear Calc Drug Dose 95.7 ml/min Estimated GFR () 107.0 Estimated GFR (Non- 92.3 BUN/Creatinine Ratio 15.8 Random Glucose 90 mg/dl Calcium Level 8.5 mg/dl Phosphorus Level 2.8 mg/dl Magnesium Level 2.0 mg/dl Assessment and Plan This is a 61 year old male with a past medical history of atrial fibrillation presents with palpitations found to have A. Fib with RVR A. Fib with RVR 10/3 HRs remained elevated on tele started on low dose Cardizem as per cardiology continue Toprol If no conversion, may plan for ANTONIO cardioversion in AM 10 stop Lovenox, start Xarelto tonight, 20mg with dinner Toprol XL twice a day as per cardiology taper down Cardizem drip 05/27 second episode, as he had this two months prior started on Cardizem drip will start Lopressor 25mg BID and try to taper down the Cardizem was given Lovenox in the ED; which we can continue while he is in A. Fib with RVR check an echo monitor in tele cardiology consult for further input CHADS2 = 0 (pending echo) DVT ppx Xarelto FULL CODE
[2017-05-29] MEDS ORDERED: METOPROLOL TARTRATE 1 MG/ML VIAL IV STA (10:32)
[2017-05-29 11:28] VITALS: BP 108/78; PULSE 82; TEMP 36.6; O2SAT 96
[2017-05-29 15:22] VITALS: BP 128/93; PULSE 94; TEMP 36.6; O2SAT 96
[2017-05-29] MEDS: RIVAROXABAN 20 MG TAB PO SCH (17:03)
[2017-05-29 19:30] VITALS: BP 140/88; PULSE 99; TEMP 36.7; O2SAT 96
[2017-05-30] VITALS (23 sets, daily range): BP systolic 86–123; BP diastolic 60–114; PULSE 71–163; TEMP 36.3–37.1; O2SAT 92–100
[2017-05-30] MEDS: SODIUM CHLORIDE 0.9% 1000ML 1,000 ML IV SCH ×2 (05:46→18:29)
[2017-05-30 06:04] LABS: HEMATOCRIT 46.7 % (42-52); MEAN CELL VOLUME 93.2 fL (80-100); MEAN CORPUSCULAR HEMOGLOBIN 32.5 pg (25-34); MEAN CORPUSCULAR HGB CONC 34.9 g/dl (32-36); MEAN PLATELET VOLUME 10.5 fL (7.4-10.4); PLATELET COUNT 186 K/uL (130-400); RED BLOOD COUNT 5.01 M/uL (4.7-6.1); WHITE BLOOD COUNT 6.75 K/uL (4.8-10.8)
[2017-05-30 06:29] LABS: INR 1.1 (0.9-1.1); PARTIAL THROMBOPLASTIN RATIO 1.2; PROTHROMBIN TIME (PATIENT) 11.7 SECONDS (9.0-12.0)
[2017-05-30 06:40] LABS: CALCIUM 8.3 mg/dl (8.5-10.1); CREATININE 0.9 mg/dl (0.60-1.40); MAGNESIUM 2.3 mg/dl (1.8-2.4); POTASSIUM 4.2 mmol/L (3.5-5.1)
[2017-05-30] MEDS ORDERED: MIDAZOLAM HCL 1 MG/ML 2ML VIAL ONE ×2 (09:09→09:18)
[2017-05-30] MEDS ORDERED: FENTANYL CITRATE INJ 50 MCG/1 ML 2 ML VIAL ONE ×2 (09:10→09:19)
[2017-05-30] MEDS: METOPROLOL SUCC 50MG EXT REL TAB PO SCH (09:33)
--- NOTE | 2017-05-30 09:43 | Procedure Note ---
Pre-Mod Sedation Assessment General Date of Moderate Sedation: May 30, 2017. Vital Signs: Vital Signs Past 12 Hours Date Time Temp Pulse Resp B/P (MAP) Pulse Ox O2 Delivery O2 Flow Rate FiO2 05/30/17 09:23 96 Room Air 05/30/17 08:00 Room Air 05/30/17 07:38 36.9 85 110/88 (95) 96 Room Air 05/30/17 04:26 37.1 84 17 111/71 (84) 96 Room Air 05/30/17 04:00 Room Air 05/30/17 00:36 36.8 94 17 103/75 (84) 95 Room Air 05/30/17 00:01 Room Air Review Cardiovascular: no edema, no gallop, no JVD, no murmur, normal peripheral pulses, + tachycardia, + irregularly irregular Abdomen: normal bowel sounds, non tender, soft, no organomegaly, no pulsatile mass Lungs: chest non-tender, lungs clear, normal breath sounds, no respiratory distress, no accessory muscle use Airway Class: I Pre-Sedation Airway Assessment Oral Cavity: WNL Smoking Status: Never Smoker Notes The planned sedation has been discussed with the patient and consent obtained. I have identified the patient, determined the appropriateness of sedation and have assessed the patient immediately prior to the procedure. All medicine(s) and interventions are by my order.
--- NOTE | 2017-05-30 10:33 | Procedure Note ---
Post-Mod Sedation Assessment General Date of Moderate Sedation May 30, 2017. Vital Signs: Vital Signs Past 12 Hours Date Time Temp Pulse Resp B/P (MAP) Pulse Ox O2 Delivery O2 Flow Rate FiO2 05/30/17 10:28 76 12 112/73 95 Nasal Cannula 3.0 05/30/17 10:23 134 11 87/68 93 Nasal Cannula 3.0 05/30/17 10:18 137 12 86/62 95 Nasal Cannula 3.0 05/30/17 10:13 142 20 102/60 92 Nasal Cannula 3.0 05/30/17 10:08 157 20 106/78 100 Nasal Cannula 3.0 05/30/17 10:03 156 20 123/114 100 Nasal Cannula 3.0 05/30/17 09:45 36.9 163 20 121/98 98 Room Air 05/30/17 09:23 96 Room Air 05/30/17 08:00 Room Air 05/30/17 07:38 36.9 85 110/88 (95) 96 Room Air 05/30/17 04:26 37.1 84 17 111/71 (84) 96 Room Air 05/30/17 04:00 Room Air 05/30/17 00:36 36.8 94 17 103/75 (84) 95 Room Air 05/30/17 00:01 Room Air Review - Discharge Criteria Vital Signs Stable: Yes Alert/Oriented/Conversant: Yes Returned to Baseline Mental St: Yes Nausea Absent/Minimal: Yes Pain/Discomfort/Absent/Minimal: Yes Normal/Baseline Respirations: Yes Active Bleeding?: No
--- NOTE | 2017-05-30 10:36 | [facility] Post Operative Brief Note ---
Immediate Operative Summary Operative Date May 30, 2017. Pre-Operative Diagnosis atrial fibrillation with rvr Post-Operative Diagnosis same Procedure(s) Performed ANTONIO guided cardioverstion Start time 101 stop time: 1024 Surgeon Dinh Rolled Seat Trimmer Surgeon(s) Anastacia SCHAEFER Estimated Blood Loss none Findings no left atrial thrombus successful cardioversion to sinus rhythm Specimens none Anesthesia moderate sedation achieved with a total of Versed 4mg and Fentanyl 100mcg Complication(s) None Disposition PCU
--- NOTE | 2017-05-30 10:39 | Cardiology Follow-Up ---
Subjective Subjective Date of Service: May 30, 2017. Pt evaluation today including: conversation w/ patient, physical exam, chart review, lab review, review of studies, review of inpatient medication list Additional Details: Pt seen and examined, states that he feels well. Some palpitations overnight with activity. Denies cp, sob, palpitations, lightheadedness or dizziness. Tele reviewed: afib with rvr overnight. Problem List Medical Problems: (1) Atrial fibrillation Status: Chronic Review of Systems Constitutional: No fever, No chills Respiratory: No cough, No sputum, No wheezing, No shortness of breath, No dyspnea on exertion, No dyspnea at rest, No hemoptysis Cardiac: No chest pain, No palpitations Objective Vital Signs Last Vital Signs Documentation Date Time Temp Pulse Resp B/P (MAP) Pulse Ox O2 Delivery O2 Flow Rate FiO2 05/30/17 10:33 81 12 102/73 97 Nasal Cannula 3.0 05/30/17 09:45 36.9 Physical Exam: General Appearance: no apparent distress Eyes: bilateral eyes normal inspection, bilateral eyes PERRL, bilateral eyes EOMI ENT: normal ENT inspection, hearing grossly normal, pharynx normal Neck: supple, no adenopathy, thyroid normal, no JVD, no carotid bruits, trachea midline Respiratory/Chest: chest non-tender, lungs clear, normal breath sounds, no respiratory distress, no accessory muscle use Cardiovascular: + tachycardia, + irregularly irregular Abdomen: normal bowel sounds, non tender, soft, no organomegaly, no pulsatile mass Extremities: non-tender, normal inspection, no pedal edema 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 atrial fibrillation successful cardioversion to sinus tolerated well will change toprol xl to 25mg daily, already received 50mg last pm, restart 10/5 AM cont Xarelto will need cardiac f/u in [place], patient understands and will comply would ideally like to monitor overnight but ok to d/c if flight is available no driving for 24 hours avoid hot liquids and scratchy foods today
--- NOTE | 2017-05-30 13:30 | Progress Note ---
Internal Med Progress Note Date of Service: May 30, 2017. Provider Documentation: SUBJECTIVE: The patient was seen and examined Remains if AF with RVR Symptomatic on ambulation OBJECTIVE: Vital Signs-as noted below Exam: General-No distress at rest Eyes-normal ENT-normal Neck-supple Lungs-clear to auscultate bilaterally Heart-Irregular,no murmur Abdomen-Benign,no masses,bowel sound present Extremities-NO edema Neuro-AAOx3 Lab data as noted below. CTA::1. No acute aortic pathology or evidence of pulmonary thromboembolic disease. 2. Bronchial wall thickening of the bilateral lungs suggests bronchitis. 3. Scattered areas of ill-defined low-attenuation throughout the right and left hepatic lobes are suspicious for nonspecific lesions. This finding could be further correlated with contrast-enhanced CT or MRI. No comparison study is available. ASSESSMENT & PLAN: This is a 61 year old male with a past medical history of atrial fibrillation presents with palpitations found to have A. Fib with RVR A. Fib with RVR Second episode, as he had this two months prior Started on Cardizem drip and changed to BB CTA-negative for Pulmonary Embolism Received Lovenox in the ED and later on started on Xarelto Cardiology consulted-appreciate Input ECHO::Normal LV chamber size and wall thickness. * Normal LV systolic function, EF 60-65%. * No segmental left ventricular wall motion abnormalities are noted. * Aortic valve sclerosis mild, without significant aortic valvular stenosis. Trace regurgitation. * Mild left atrial enlargement. S/P Cardioversion 05/30/17 -reverted to SR Continue BB Likely discharged tomorrow DVT ppx Xarelto FULL CODE Vital Signs: Date Time Temp Pulse Resp B/P (MAP) Pulse Ox O2 Delivery O2 Flow Rate FiO2 05/30/17 12:15 76 16 102/85 (91) 05/30/17 12:00 Room Air 05/30/17 12:00 83 16 118/76 (90) Room Air 05/30/17 11:45 79 16 104/74 (84) Room Air 05/30/17 11:30 84 16 101/76 (84) 05/30/17 11:15 77 18 112/75 (87) 100 Nasal Cannula 3.0 05/30/17 11:00 36.4 81 16 98/74 (82) 100 Nasal Cannula 3.0 05/30/17 10:48 36.9 77 18 108/73 (85) 98 Nasal Cannula 3.0 05/30/17 10:41 36.9 80 20 105/80 99 Nasal Cannula 3.0 05/30/17 10:39 79 20 114/78 98 Nasal Cannula 3.0 05/30/17 10:33 81 12 102/73 97 Nasal Cannula 3.0 05/30/17 10:28 76 12 112/73 95 Nasal Cannula 3.0 05/30/17 10:23 134 11 87/68 93 Nasal Cannula 3.0 05/30/17 10:18 137 12 86/62 95 Nasal Cannula 3.0 05/30/17 10:13 142 20 102/60 92 Nasal Cannula 3.0 05/30/17 10:08 157 20 106/78 100 Nasal Cannula 3.0 05/30/17 10:03 156 20 123/114 100 Nasal Cannula 3.0 05/30/17 09:45 36.9 163 20 121/98 98 Room Air 05/30/17 09:23 96 Room Air 05/30/17 08:00 Room Air 05/30/17 07:38 36.9 85 110/88 (95) 96 Room Air 05/30/17 04:26 37.1 84 17 111/71 (84) 96 Room Air 05/30/17 04:00 Room Air 05/30/17 00:36 36.8 94 17 103/75 (84) 95 Room Air 05/30/17 00:01 Room Air 05/29/17 20:00 Room Air 05/29/17 19:30 36.7 99 18 140/88 (105) 96 Room Air 05/29/17 16:00 Room Air 05/29/17 15:22 36.6 94 18 128/93 (105) 96 Room Air Lab Results: Results Past 24 Hours Test 05/30/17 05:43 Range/Units White Blood Count 6.75 4.8-10.8 K/uL Red Blood Count 5.01 4.7-6.1 M/uL Hemoglobin 16.3 14.0-18.0 g/dL Hematocrit 46.7 42-52 % Mean Corpuscular Volume 93.2 80-100 fL Mean Corpuscular Hemoglobin 32.5 25-34 pg Mean Corpuscular Hemoglobin Concent 34.9 32-36 g/dl RDW Standard Deviation 44.5 36.4-46.3 fL RDW Coefficient of Variation 13.1 11.5-14.5 % Platelet Count 186 130-400 K/uL Mean Platelet Volume 10.5 7.4-10.4 fL Prothrombin Time 11.7 9.0-12.0 SECONDS Prothromb Time International Ratio 1.1 0.9-1.1 Activated Partial Thromboplast Time 30.6 21.0-31.0 SECONDS Partial Thromboplastin Ratio 1.2 Sodium Level 142 136-145 mmol/L Potassium Level 4.2 3.5-5.1 mmol/L Chloride Level 108 98-107 mmol/L Carbon Dioxide Level 28 21-32 mmol/L Anion Gap 6.0 3-11 mmol/L Blood Urea Nitrogen 15 7-18 mg/dl Creatinine 0.90 0.60-1.40 mg/dl Est Creatinine Clear Calc Drug Dose 94.6 ml/min Estimated GFR () 106.5 Estimated GFR (Non- 91.9 BUN/Creatinine Ratio 17.0 10-20 Random Glucose 90 70-99 mg/dl Calcium Level 8.3 8.5-10.1 mg/dl Magnesium Level 2.3 1.8-2.4 mg/dl
[2017-05-30] MEDS: RIVAROXABAN 20 MG TAB PO SCH (16:25)
[2017-05-31 00:35] VITALS: BP 109/65; PULSE 65; TEMP 37; O2SAT 98
[2017-05-31] MEDS: SODIUM CHLORIDE 0.9% 1000ML 1,000 ML IV SCH (00:46)
[2017-05-31 04:14] VITALS: BP 118/65; PULSE 65; TEMP 37; O2SAT 96
[2017-05-31 06:11] LABS: HEMATOCRIT 44.5 % (42-52); MEAN CELL VOLUME 93.3 fL (80-100); MEAN CORPUSCULAR HEMOGLOBIN 31.4 pg (25-34); MEAN CORPUSCULAR HGB CONC 33.7 g/dl (32-36); MEAN PLATELET VOLUME 9.9 fL (7.4-10.4); PLATELET COUNT 160 K/uL (130-400); RED BLOOD COUNT 4.77 M/uL (4.7-6.1); WHITE BLOOD COUNT 5.27 K/uL (4.8-10.8)
[2017-05-31 06:53] LABS: CREATININE 0.84 mg/dl (0.60-1.40)
[2017-05-31 07:17] VITALS: BP 127/80; PULSE 61; TEMP 36.6; O2SAT 98
[2017-05-31] MEDS ORDERED: METOPROLOL SUCC 25MG EXT REL TAB PO SCH ×2 (09:00→16:45)
--- NOTE | 2017-05-31 09:40 | Cardiology Follow-Up ---
Subjective Subjective Date of Service: May 31, 2017. Pt evaluation today including: conversation w/ patient, physical exam, chart review, lab review, review of studies, review of inpatient medication list Additional Details: Pt seen and examined, states that he feels great. Denies cp, sob, palpitations, lightheadedness or dizziness. Tele reviewed: sinus rhythm without arrhythmia or significant ectopy. Problem List Medical Problems: (1) Atrial fibrillation Status: Chronic Review of Systems Constitutional: No fever, No chills Respiratory: No cough, No sputum, No wheezing, No shortness of breath, No dyspnea on exertion, No dyspnea at rest, No hemoptysis Cardiac: No chest pain, No palpitations Objective Vital Signs Last Vital Signs Documentation Date Time Temp Pulse Resp B/P (MAP) Pulse Ox O2 Delivery O2 Flow Rate FiO2 05/31/17 07:17 36.6 61 20 127/80 (96) 98 Room Air 05/30/17 11:15 3.0 Physical Exam: General Appearance: WD/WN, no apparent distress Eyes: bilateral eyes normal inspection, bilateral eyes PERRL, bilateral eyes EOMI ENT: normal ENT inspection, hearing grossly normal, pharynx normal Neck: supple, no adenopathy, thyroid normal, no JVD, no carotid bruits, trachea midline Respiratory/Chest: chest non-tender, lungs clear, normal breath sounds, no respiratory distress, no accessory muscle use Cardiovascular: regular rate, rhythm, no edema, no gallop, no JVD, no murmur Abdomen: normal bowel sounds, non tender, soft, no organomegaly, no pulsatile mass Extremities: non-tender, normal inspection, no pedal edema 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
--- NOTE | 2017-05-31 10:06 | Progress Note ---
Internal Med Progress Note Date of Service: May 31, 2017. Provider Documentation: SUBJECTIVE: The patient was seen and examined S/P DC Cardioversion Remains on Sinus Rhythm Denies any symptoms Ready to be discharged OBJECTIVE: Vital Signs-as noted below Exam: General-No distress at rest Eyes-normal ENT-normal Neck-supple Lungs-clear to auscultate bilaterally Heart-Irregular,no murmur Abdomen-Benign,no masses,bowel sound present Extremities-NO edema Neuro-AAOx3 Lab data as noted below. CTA::1. No acute aortic pathology or evidence of pulmonary thromboembolic disease. 2. Bronchial wall thickening of the bilateral lungs suggests bronchitis. 3. Scattered areas of ill-defined low-attenuation throughout the right and left hepatic lobes are suspicious for nonspecific lesions. This finding could be further correlated with contrast-enhanced CT or MRI. No comparison study is available. ASSESSMENT & PLAN: This is a 61 year old male with a past medical history of atrial fibrillation presents with palpitations found to have A. Fib with RVR A. Fib with RVR-Reverted to SR with Cardioversion Second episode, as he had this two months prior Started on Cardizem drip and changed to BB CTA-negative for Pulmonary Embolism Received Lovenox in the ED and later on started on Xarelto Cardiology consulted-appreciate Input ECHO::Normal LV chamber size and wall thickness. * Normal LV systolic function, EF 60-65%. * No segmental left ventricular wall motion abnormalities are noted. * Aortic valve sclerosis mild, without significant aortic valvular stenosis. Trace regurgitation. * Mild left atrial enlargement. S/P Cardioversion 05/30/17 -reverted to SR Continue BB and Xarelto Likely discharged tomorrow DVT ppx Xarelto FULL CODE Discharge today 05/31/17 Vital Signs: Date Time Temp Pulse Resp B/P (MAP) Pulse Ox O2 Delivery O2 Flow Rate FiO2 05/31/17 07:17 36.6 61 20 127/80 (96) 98 Room Air 05/31/17 04:14 37.0 65 17 118/65 (82) 96 Room Air 05/31/17 04:00 Room Air 05/31/17 00:35 37.0 65 17 109/65 (80) 98 05/30/17 23:59 Room Air 05/30/17 20:00 Room Air 05/30/17 19:49 36.3 71 18 114/84 (94) 98 Room Air 05/30/17 16:00 Room Air 05/30/17 15:20 36.7 80 20 113/78 (90) 98 05/30/17 12:15 76 16 102/85 (91) 05/30/17 12:00 Room Air 05/30/17 12:00 83 16 118/76 (90) Room Air 05/30/17 11:45 79 16 104/74 (84) Room Air 05/30/17 11:30 84 16 101/76 (84) 05/30/17 11:15 77 18 112/75 (87) 100 Nasal Cannula 3.0 05/30/17 11:00 36.4 81 16 98/74 (82) 100 Nasal Cannula 3.0 05/30/17 10:48 36.9 77 18 108/73 (85) 98 Nasal Cannula 3.0 05/30/17 10:41 36.9 80 20 105/80 99 Nasal Cannula 3.0 05/30/17 10:39 79 20 114/78 98 Nasal Cannula 3.0 05/30/17 10:33 81 12 102/73 97 Nasal Cannula 3.0 05/30/17 10:28 76 12 112/73 95 Nasal Cannula 3.0 05/30/17 10:23 134 11 87/68 93 Nasal Cannula 3.0 05/30/17 10:18 137 12 86/62 95 Nasal Cannula 3.0 05/30/17 10:13 142 20 102/60 92 Nasal Cannula 3.0 05/30/17 10:08 157 20 106/78 100 Nasal Cannula 3.0 Lab Results: Results Past 24 Hours Test 05/31/17 05:59 Range/Units White Blood Count 5.27 4.8-10.8 K/uL Red Blood Count 4.77 4.7-6.1 M/uL Hemoglobin 15.0 14.0-18.0 g/dL Hematocrit 44.5 42-52 % Mean Corpuscular Volume 93.3 80-100 fL Mean Corpuscular Hemoglobin 31.4 25-34 pg Mean Corpuscular Hemoglobin Concent 33.7 32-36 g/dl RDW Standard Deviation 44.4 36.4-46.3 fL RDW Coefficient of Variation 13.0 11.5-14.5 % Platelet Count 160 130-400 K/uL Mean Platelet Volume 9.9 7.4-10.4 fL Creatinine 0.84 0.60-1.40 mg/dl Est Creatinine Clear Calc Drug Dose 101.4 ml/min Estimated GFR () 109.5 Estimated GFR (Non- 94.5
[2017-05-31] MEDS ORDERED: XRL20 PO (10:07)
[2017-05-31] MEDS ORDERED: TPRSR25 PO (10:07)
--- NOTE | 2017-05-31 10:10 | Discharge Instructions ---
Discharge Instructions Date of Service May 31, 2017. Admission Reason for Admission: Atrial Flutter Discharge Discharge Diagnosis / Problem: Atrial Fibrillation with RVR-S/P Cardioversion with reversal of SR Discharge Goals Goal(s): Prevent Disease Progression Activity Recommendations Activity Limitations: resume your previous activity . Instructions / Follow-Up Instructions / Follow-Up Please make an appointment with your PCP in 1 week and will need Cariology follow up as well Current Hospital Diet Patient's current hospital diet: AHA Diet (Heart Healthy) Discharge Diet Recommended Diet: AHA Diet (Heart Healthy) Procedures Procedures Performed: ANTONIO guided cardioverstion Start time 1012 stop time: 1025 Pending Studies Studies pending at discharge: no Medical Emergencies . Who to Call and When: Medical Emergencies: If at any time you feel your situation is an emergency, please call 911 immediately. . Non-Emergent Contact Non-Emergency issues call your: Primary Care Provider . Past History Medical & Surgical History: (1) Atrial fibrillation . "Provider Documentation" section prepared by Amna Campbell. . VTE Core Measure Inpt VTE Proph given/why not?: Other Anticoagulation (Xarelto -Rivaroxaban)
--- NOTE | 2017-05-31 10:14 | Discharge Summary ---
Discharge Summary Date of Service May 31, 2017. Discharge Summary Admission Date: May 27, 2017 at 15:41 Discharge Date: May 31, 2017 Discharge Disposition: Home Principal Diagnosis: Atrial Fibrillation with RVR-S/P Cardioversion with reversal of SR Secondary Diagnoses/Problems: Please see H&P and Hospital Progress note Procedures: Cardioversion Consultations: Cardiology Medication Reconciliation New Medications: Metoprolol Succinate (Metoprolol Succinate ER) 25 Mg Tabcr 25 MG PO QDD for 30 Days, #30 Rivaroxaban (Xarelto) 20 Mg Tab 20 MG PO QDD for 30 Days, #30 TAB Admission Information HPI (per Admitting provider): This is a 61 year old male with a past medical history of atrial fibrillation presents with palpitations - he states that two months ago in the [place], he was diagnosed with [place] Fibrillation. At that time, they did some tests and put in on a b-jon. His heart rhythm converted to sinus rhythm and he was told to use the b-jon for two more weeks and then stop, which he did. Since then he had been on no medications. Earlier this morning, he developed palpitations - similar to this previous episode of A. Fib. Presented here and found to have A. Fib with RVR again. Started on Cardizem drip and HRs started improving. States he had dyspnea with exertion and palpitations, but no other symptoms at this time. Past Medical/Surgical History Medical Problems: (1) Atrial fibrillation Status: Chronic Family History Angina Social History Smoking Status: Never Smoker Allergies Coded Allergies: No Known Allergies (Unverified , 05/27/17) Home Medications No Active Prescriptions or Reported Meds Review of Systems Constitutional: No fever, No chills, No weakness Respiratory: + dyspnea on exertion, No cough, No sputum, No wheezing, No shortness of breath, No dyspnea at rest, No hemoptysis Cardiovascular: + palpitations, No chest pain, No orthopnea, No edema Abdomen: No pain, No nausea, No vomiting, No diarrhea Musculoskeletal: No joint pain Genitourinary - Male: No hematuria, No dysuria, No urinary frequency, No urinary urgency Neurologic: No weakness, No numbness/tingling, No vertigo, No balance problems Psychiatric: No depression symptoms, No anxiety Endocrine: No fatigue, No excessive thirst, No excessive urination Hematologic / Lymphatic: No abnormal bleeding/bruising, No swollen lymph nodes Integumentary: No rash, No itch Allergic / Immunologic: No environmental allergies, No seasonal allergies Physical Exam Vital Signs Date Time Temp Pulse Resp B/P (MAP) Pulse Ox O2 Delivery O2 Flow Rate FiO2 05/27/17 15:10 103 18 114/79 96 Room Air 05/27/17 14:34 115 18 129/74 98 Room Air 05/27/17 14:04 125 18 113/90 97 Room Air 05/27/17 13:36 111 18 96/77 94 Room Air 05/27/17 12:34 123 18 124/76 95 Room Air 05/27/17 12:09 118 18 102/83 97 Room Air 05/27/17 11:55 156 18 125/61 96 Room Air 05/27/17 11:48 155 18 119/87 97 Room Air 05/27/17 11:34 160 18 95/88 97 Room Air 05/27/17 11:22 157 05/27/17 11:19 36.5 158 20 124/100 98 Room Air General Appearance: no apparent distress Head: normocephalic, atraumatic Eyes: normal inspection ENT: hearing grossly normal Neck: supple Respiratory/Chest: chest non-tender, lungs clear, normal breath sounds, no respiratory distress, no accessory muscle use Cardiovascular: no edema, no JVD, no murmur, normal peripheral pulses, + tachycardia, + irregularly irregular Abdomen/GI: normal bowel sounds, non tender, soft Back: normal inspection Extremities/Musculoskelatal: normal inspection, no calf tenderness, normal capillary refill, no pedal edema, normal range of motion 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, no motor/sensory deficits, alert, normal mood/affect, oriented x 3 Skin: normal color Lymphatic: no adenopathy Diagnostics Laboratory Results Results Past 24 Hours Test 05/27/17 11:24 05/27/17 15:16 Range/Units White Blood Count 9.45 4.8-10.8 K/uL Red Blood Count 5.42 4.7-6.1 M/uL Hemoglobin 17.4 14.0-18.0 g/dL Hematocrit 50.4 42-52 % Mean Corpuscular Volume 93.0 80-100 fL Mean Corpuscular Hemoglobin 32.1 25-34 pg Mean Corpuscular Hemoglobin Concent 34.5 32-36 g/dl Platelet Count 233 130-400 K/uL Mean Platelet Volume 11.1 7.4-10.4 fL Neutrophils (%) (Auto) 72.5 % Lymphocytes (%) (Auto) 18.0 % Monocytes (%) (Auto) 7.6 % Eosinophils (%) (Auto) 1.3 % Basophils (%) (Auto) 0.2 % Neutrophils # (Auto) 6.85 1.4-6.5 K/uL Lymphocytes # (Auto) 1.70 1.2-3.4 K/uL Monocytes # (Auto) 0.72 0.11-0.59 K/uL Eosinophils # (Auto) 0.12 0-0.5 K/uL Basophils # (Auto) 0.02 0-0.2 K/uL RDW Standard Deviation 44.7 36.4-46.3 fL RDW Coefficient of Variation 13.1 11.5-14.5 % Immature Granulocyte % (Auto) 0.4 % Immature Granulocyte # (Auto) 0.04 0.00-0.02 K/uL D-Dimer 590 0-500 ug/L FEU Sodium Level 140 136-145 mmol/L Potassium Level 3.9 3.5-5.1 mmol/L Chloride Level 104 98-107 mmol/L Carbon Dioxide Level 29 21-32 mmol/L Anion Gap 7.0 3-11 mmol/L Blood Urea Nitrogen 18 7-18 mg/dl Creatinine 1.00 0.60-1.40 mg/dl Est Creatinine Clear Calc Drug Dose 85.2 ml/min Estimated GFR () 93.7 Estimated GFR (Non- 80.9 BUN/Creatinine Ratio 17.8 10-20 Random Glucose 141 70-99 mg/dl Calcium Level 9.0 8.5-10.1 mg/dl Magnesium Level 2.2 1.8-2.4 mg/dl Total Bilirubin 0.7 0.2-1 mg/dl Aspartate Amino Transf (AST/SGOT) 25 15-37 U/L Alanine Aminotransferase (ALT/SGPT) 37 12-78 U/L Alkaline Phosphatase 61 45-117 U/L Troponin I < 0.015 0-0.045 ng/ml Pro-B-Type Natriuretic Peptide 228 0-900 pg/ml Total Protein 7.5 6.4-8.2 gm/dl Albumin 4.0 3.4-5.0 gm/dl Globulin 3.5 2.5-4.0 gm/dl Albumin/Globulin Ratio 1.1 0.9-2 Thyroid Stimulating Hormone (TSH) 1.590 0.300-4.500 uIu/ml Diagnostic Radiology (CHEST FOR PE) ANGIO WITH CT DOSE: 462.63 mGy.cm HISTORY: 61 years-old Male tachycardia with shortness of breath on exertion. Recent travel history. TECHNIQUE: Multiple CTA images of the chest were obtained after the intravenous administration of 93 mL Optiray 320. Coronal and sagittal MIPS were obtained from the axial data set and were submitted for review. A dose lowering technique was utilized adhering to the principles of ALARA. COMPARISON: Chest radiograph of same day. FINDINGS: CTA: Heart is upper limits of normal in size. The thoracic aorta is not well opacified secondary to a large portion of the contrast bolus still within the SVC. No aortic aneurysm or dissection is identified. Imaged proximal great vessels appear patent. There is satisfactory opacification of the pulmonary arterial tree to the level of the subsegmental branches and demonstrates no focal filling defect to suggest pulmonary thromboembolic disease. CT CHEST: No dominant thyroid nodule identified. No pathologic adenopathy of the chest is seen. No pneumothorax or pleural effusion. There is no focal airspace consolidation or overt pulmonary edema. Minimal groundglass opacities of the lung bases suggest atelectasis. Central airways are patent. There is mild bronchial wall thickening of the lung bases suggesting bronchitis. No significant air trapping identified. There are ill-defined scattered areas of low attenuation involving the right and left hepatic lobes measuring up to approximately 1.5 cm. The remaining imaged upper abdominal structures are within normal limits. Soft tissues are unremarkable. The bones appear intact. No suspicious lytic or blastic bony lesions IMPRESSION: 1. No acute aortic pathology or evidence of pulmonary thromboembolic disease. 2. Bronchial wall thickening of the bilateral lungs suggests bronchitis. 3. Scattered areas of ill-defined low-attenuation throughout the right and left hepatic lobes are suspicious for nonspecific lesions. This finding could be further correlated with contrast-enhanced CT or MRI. No comparison study is available. CHEST ONE VIEW PORTABLE HISTORY: 61 years-old Male palpitations acute cardiac palpitations COMPARISON: None available TECHNIQUE: Portable upright AP view of the chest FINDINGS: Cardiomediastinal and hilar silhouettes are within normal limits. No pneumothorax, pleural effusion, focal airspace consolidation or overt pulmonary edema. Bones of the chest are grossly intact. IMPRESSION: No acute cardiopulmonary process. EKG Atrial fibrillation with rapid ventricular response Impression Assessment and Plan This is a 61 year old male with a past medical history of atrial fibrillation presents with palpitations found to have A. Fib with RVR A. Fib with RVR second episode, as he had this two months prior started on Cardizem drip will start Lopressor 25mg BID and try to taper down the Cardizem was given Lovenox in the ED; which we can continue while he is in A. Fib with RVR check an echo monitor in tele cardiology consult for further input CHADS2 = 0 (pending echo) DVT ppx Lovenox 1mg/kg q12 FULL CODE VTE Prophylaxis VTE Risk Assessment Done? Y/N: Yes Risk Level: Moderate Given or contraindicated: Other Anticoagulation <Electronically signed by Rich Elizondo DO> Physical Exam (per Admitting): General Appearance: no apparent distress Head: normocephalic, atraumatic Eyes: normal inspection ENT: hearing grossly normal Neck: supple Respiratory/Chest: chest non-tender, lungs clear, normal breath sounds, no respiratory distress, no accessory muscle use Cardiovascular: no edema, no JVD, no murmur, normal peripheral pulses, + tachycardia, + irregularly irregular Abdomen/GI: normal bowel sounds, non tender, soft Back: normal inspection Extremities/Musculoskelatal: normal inspection, no calf tenderness, normal capillary refill, no pedal edema, normal range of motion 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 Fib with RVR A. Fib with RVR-Reverted to SR with Cardioversion Second episode, as he had this two months prior Started on Cardizem drip and changed to BB CTA-negative for Pulmonary Embolism Received Lovenox in the ED and later on started on Xarelto Cardiology consulted-appreciate Input ECHO::Normal LV chamber size and wall thickness. * Normal LV systolic function, EF 60-65%. * No segmental left ventricular wall motion abnormalities are noted. * Aortic valve sclerosis mild, without significant aortic valvular stenosis. Trace regurgitation. * Mild left atrial enlargement. S/P Cardioversion 05/30/17 -reverted to SR Continue BB and Xarelto Likely discharged tomorrow DVT ppx Xarelto FULL CODE Discharge today 05/31/17 Total time spent on discharge =35 minutes This includes examination of the patient, discharge planning, medication reconciliation, and communication with other providers. Discharge Instructions Date of Service May 31, 2017. Admission Reason for Admission: Atrial Flutter Discharge Discharge Diagnosis / Problem: Atrial Fibrillation with RVR-S/P Cardioversion with reversal of SR Discharge Goals Goal(s): Prevent Disease Progression Activity Recommendations Activity Limitations: resume your previous activity . Instructions / Follow-Up Instructions / Follow-Up Please make an appointment with your PCP in 1 week and will need Cariology follow up as well Current Hospital Diet Patient's current hospital diet: AHA Diet (Heart Healthy) Discharge Diet Recommended Diet: AHA Diet (Heart Healthy) Procedures Procedures Performed: ANTONIO guided cardioverstion Start time 1012 stop time: 1025 Pending Studies Studies pending at discharge: no Medical Emergencies . Who to Call and When: Medical Emergencies: If at any time you feel your situation is an emergency, please call 911 immediately. . Non-Emergent Contact Non-Emergency issues call your: Primary Care Provider . Past History Medical & Surgical History: (1) Atrial fibrillation . "Provider Documentation" section prepared by Amna Campbell. . VTE Core Measure Inpt VTE Proph given/why not?: Other Anticoagulation (Xarelto -Rivaroxaban) <Electronically signed by Amna Campbell M.D.>
[2017-05-31 11:53] VITALS: BP 117/89; PULSE 90; TEMP 37.3; O2SAT 95
[2017-05-31 11:54] VITALS: BP 117/89; PULSE 90; TEMP 37.3; O2SAT 95
[2017-05-31] MEDS ORDERED: NURSING VERBAL MED ORDER ONE (12:30)
--- NOTE | 2017-06-04 12:10 | TEE ---
*NOTICE TO RECEIVING DEMOCRAT AGENCY This information is strictly Confidential and protected under [place] law. [place] law prohibits you from making any further disclosure of this information unless further disclosure is expressly permitted by the written consent of the person to whom it pertains or is authorized by law. A general authorization for the release of medical or other information is not sufficient for this purpose. Hospital accepts no responsibility if the information is made available to any other person, INCLUDING THE PATIENT. Interpretation Summary * Name: JOEL LINDSAY Study Date: 05/30/2017 09:48 AM BP: 109/70 mmHg * Patient Location: [id number].[id number]\E206\[id number]\1 HR: 157 * : 1955 (M/d/yyyy) Gender: Male Height: 72 in * Age: 61 yrs Ethnicity: CA Weight: 188 lb * Ordering Physician: Casa Tao * Performed By: Michael Quinonez RCS * * Reason For Study: A-FIB, Eval for CSOE * BSA: 2.1 m2 * -- Conclusions -- * No left atrial thrombus present. Procedure Details * ANTONIO Probe #1 utilized for procedure. * The study was performed at bedside. * Time out was conducted by the physician, nurse, and vascular technologist sonographer with positive identification of patient and procedure. * Informed consent for Transesophageal Echocardiogram was obtained prior to the procedure. * An intravenous line was placed. A topical anesthetic agent was used for oropharangeal anesthesia. A bite block was inserted. * Start Time 1012 Stop Time 1018 * Fentanyl 75 mcg was administered for procedural sedation. * Midazolam 3 mg administered for sedation. * The patient's vital signs, including blood pressure, heart rate, pulse oximetry and cardiac rhythm were monitored throughout the procedure . * A multifrequency, multiplane transesopheageal echocardiographic endoscope was inserted and manipulated in the standard fashion to achieve multiplane views. * The transesophageal probe was passed without difficulty. * The usual views were obtained; basal, mid-esophageal, transgastric and aortic views. * The patient tolerated the procedure well without evidence of orophangeal or esophageal trauma. * A 2D transesophageal echocardiogram was performed. * A 2D transesophageal echocardiogram with color flow Doppler was performed. * A 2D transesophageal echocardiogram with Doppler and color flow Doppler was performed. Left Ventricle * The left ventricle is normal in size. * Left ventricular systolic function is normal. * Ejection Fraction = 60-65%. * The left ventricular wall motion is normal. Atria * The left atrial size is normal. * No thrombus is detected in the left atrial appendage. * Right atrial size is normal. * No ASD detected; PFO is not assessed. Mitral Valve * The mitral valve anatomy is normal. * There is no mitral valve stenosis. * There is trace mitral regurgitation. Tricuspid Valve * The tricuspid valve is normal in structure and function. Aortic Valve * The aortic valve is normal in structure and function. Pulmonic Valve * The pulmonary valve is not well seen, but the Doppler examination is normal without significant regurgitation or stenosis. Great Vessels * The aortic root and proximal ascending aorta are normal sized. Pericardium * There is no pericardial effusion.
== END 2017-05-31 12:27 | disposition home or self-care (01) | DRG 310 ==
LOC: C.EDB 11:14 → C.2E 15:41 → ENRESERV 15:52
PROVIDERS: ADMIT Family Medicine; ATTEND Internal Medicine
PROC: 5A2204Z Restoration of Cardiac Rhythm, Single (ICD-10-PCS; principal; 2017-05-30)
DX: I48.0 Paroxysmal atrial fibrillation (principal); I48.2 Chronic atrial fibrillation